=== PATIENT | female | born 1980 | race Caucasian/White ===

== ENCOUNTER 2017-04-20 11:41 | Day surgery (SDC) | payer BC ==
[2017-04-20 12:43] LABS: #Eosinphils 0.2 thou/uL (0.0-0.7); #Lymphocytes 3.5 thou/uL (1.20-3.40); #Monocytes 0.4 thou/uL (0.11-0.59); #Neutrophils 3.9 thou/uL (1.40-6.50); %Basophils 0.4 % (0.0-1.0); %Eosinophils 2.8 % (0.0-10.0); %Lymphocytes 43.1 % (21.0-51.0); %Monocytes 4.9 % (0.0-10.0); Red Blood Cell (RBC) Count 4.05 mill/uL (4.20-5.40)
[2017-04-20 13:06] LABS: ALT (SGPT) 19 U/L (8-55); AST (SGOT) 51 U/L (5-34); Alkaline Phosphatase 78 U/L (40-150); Anion Gap 16 mmol/L (10-20); BUN (Urea Nitrogen) 9 mg/dL (7.0-18.7); Bilirubin, Direct 0.1 mg/dL (0.1-0.3); Bilirubin, Total 0.3 mg/dL (0.2-1.2); Calc. Creatinine Clearance 0 mL/min (70-130); Calcium 8.9 mg/dL (7.8-10.44); Carbon Dioxide 23 mmol/L (22-29); Chloride 104 mmol/L (98-107); Estimated GFR-MDRD Greater than 90; Protein, Total 7.1 g/dL (6.0-8.3)
[2017-04-20] MEDS ORDERED: Bupivacaine/Epinephrine 0.25% 30 ML VIAL ONE (13:23)
[2017-04-20] MEDS ORDERED: cefOXitin 2 GM, Syringe 1 ML in Sterile Water 10 ML SLOW IVP SCH (13:30)
[2017-04-20] MEDS ORDERED: Fentanyl 250 MCG/5 ML VIAL ONE (13:37)
[2017-04-20] MEDS ORDERED: Iothalamate Meglumine 60% 50 ML VIAL FS ONE (13:50)
[2017-04-20] MEDS ORDERED: Succinylcholine Chloride 20 MG/ML 10 ml SYRINGE FS ONE (13:58)
[2017-04-20] MEDS ORDERED: Lidocaine 2% MPF 10 ML AMP (For Epidural Use) ONE (13:58)
[2017-04-20] MEDS ORDERED: ePHEDrine/0.9% NaCl/PF SYRINGE 50 mg/10 ml ONE (13:58)
[2017-04-20] MEDS ORDERED: Ondansetron HCl/PF 4 MG/2 ML Vial ONE (13:58)
[2017-04-20] MEDS ORDERED: Glycopyrrolate 0.2 MG/ML 5 ML SYRINGE ONE (13:58)
[2017-04-20] MEDS ORDERED: Propofol 200 MG/20 ML VIAL ONE ×2 (13:58)
[2017-04-20] MEDS ORDERED: Ketorolac Tromethamine 30 MG/ML VIAL ONE (13:58)
[2017-04-20] MEDS ORDERED: PHENYLEPHRINE-NS 100 MCG/ML 10 ML SYRINGE ONE (13:58)
[2017-04-20] MEDS ORDERED: Dexamethasone 20 MG/5 ML VIAL ONE (13:58)
[2017-04-20] MEDS ORDERED: Diprivan 20 ML ONE (14:58)
[2017-04-20] MEDS ORDERED: Promethazine HCl 25 MG/ML VIAL ONE ×2 (15:58→18:22)
[2017-04-20] MEDS ORDERED: Fentanyl 100 MCG/2 ML VIAL ONE ×2 (16:00→16:21)
[2017-04-20] MEDS ORDERED: HYDROcodone/Acetaminophen 5/325 mg Tablet ONE (18:28)
--- NOTE | 2017-04-23 08:52 | OP ---
DATE OF PROCEDURE: 04/20/2017 PREOPERATIVE DIAGNOSIS: Chronic cholecystitis. POSTOPERATIVE DIAGNOSIS: Chronic cholecystitis. PROCEDURE PERFORMED: Laparoscopic cholecystectomy with intraoperative cholangiogram. SURGEON: John Barnett M.D. ANESTHESIA: General. ESTIMATED BLOOD LOSS: Minimal. COMPLICATIONS: None. SPECIMENS: Gallbladder. TECHNIQUE: The patient was taken to the operating room and placed supine on the table. After genera l anesthetic was obtained, the abdomen was prepped and draped in a sterile fashion. A straight incis ion was made above the umbilicus. Cautery was used to dissect down to and score the fascia. Abdomin al cavity entered bluntly using a Simran clamp. Holding stitch of PDS was placed on each side of the fascia. Gonzalez trocar was placed. High-flow pneumoperitoneum was obtained. An upper midline 5-mm p ort and 2 right upper quadrant 5-mm ports were placed under direct camera visualization. The gallbla dder was retracted from the gallbladder fossa. The peritoneum was opened anteriorly and posteriorly. The patient had a long gallbladder. Her body habitus made it very difficult to see the base of the gallbladder. An additional 5-mm port was placed in the left upper quadrant and the snake liver retr actor was brought in and used to hold the omentum and colon down to expose the fundus of the gallblad joss. At the base of the gallbladder, the cystic duct and cystic artery were dissected away from surr ounding structures. The critical view triangle was able to be seen. A clip was placed high on the c ystic duct. A small ductotomy was made just proximal to that. A cholangiocatheter was brought in th rough a separate stab incision and placed into the cystic duct and a cholangiogram was performed, whi ch confirms the anatomy. Cholangiocatheter was removed and a PDS endoloop was used to ligate the cys tic duct proximally. Cystic artery was taken using two clips proximally, one clip distally, and cut using laparoscopic scissors. Cautery was used to dissect the gallbladder out of the gallbladder ellen a. The gallbladder was placed in an Endo catch bag and brought out through the Gonzalez. All port sit es were infiltrated using local anesthetic. There was bleeding in the liver bed, it was controlled w ith cautery. There was no bleeding at the end of the procedure. All port sites were infiltrated usi ng local anesthetic. All ports were removed under camera visualization. Pneumoperitoneum was let do wn. PDS was used to close the fascial defect below the umbilicus. All incisions were irrigated and closed using 4-0 Monocryl and Dermabond. The patient went to recovery in stable condition. All inst rument counts, needle counts, and lap counts were correct.
--- NOTE | 2017-04-23 18:20 | RAD ---
INTRAOPERATIVE CHOLANGIOGRAM: Date: 04-20-17 History: Laparoscopic cholecystectomy. FINDINGS: A single image is provided from an intraoperative cholangiogram performed on 04-20-17. The study is provided for interpretation on 04-23-17. The single provided image demonstrates contrast media within the common bile duct and intrahepatic b iliary tree. Intrahepatic ducts are poorly assessed secondary to motion. The distal CBD is not evalu ated on this examination as it is not opacified. There is contrast media within the duodenum and the cholecystectomy bed, likely via the cystic duct remnant, spilling into the gallbladder fossa. No ob vious filling defect is seen. Correlation with real-time imaging is required. IMPRESSION: Intraoperative cholangiogram as above. POS: CAROL
== END 2017-04-20 17:20 | disposition home or self-care (01) ==
LOC: SDC 11:41
PROVIDERS: ATTEND Surgery
PROC: 0FT44ZZ Resection of Gallbladder, Percutaneous Endoscopic Approach (ICD-10-PCS; principal; 2017-04-20)
PROC: BF03YZZ Plain Radiography of Gallbladder and Bile Ducts using Other Contrast (ICD-10-PCS; principal; 2017-04-20)
DX: K81.0 Acute cholecystitis (principal); K81.1 Chronic cholecystitis; I10 Essential (primary) hypertension; E66.9 Obesity, unspecified; K21.9 Gastro-esophageal reflux disease without esophagitis; Z68.44 Body mass index [BMI] 60.0-69.9, adult; Z79.899 Other long term (current) drug therapy; Z98.890 Other specified postprocedural states; Z87.891 Personal history of nicotine dependence
CPT/HCPCS: 36415; 47532; 80048; 80076; 85025; 88304; 96374; A4216; J0131; J0694; J1100; J1170; J1885; J2001; J2405; J2550; J2704; J3010; Q9961

== ENCOUNTER 2020-02-12 18:57 | Emergency (ER) | payer OTHER ==
[2020-02-12] MEDS ORDERED: Ketorolac Tromethamine 30 MG/ML VIAL ONE (19:59)
--- NOTE | 2020-02-12 20:09 | CT ---
Exam: CT cervical spine without contrast HISTORY: Trauma. Pain. COMPARISON: None FINDINGS: No craniocervical dissociation. Appropriate alignment of the lateral masses of C1 and C2. Intact odon toid process Appropriate alignment of the facets. Soft tissue neck structures: No mass, hematoma or prevertebral soft tissue swelling. There are scatte red enlarged soft tissue neck lymph nodes. Property Caretaker enlarged lymph node is noted on the right neck, compatible with a enlarged right level 2-3 lymph node measuring 1.1 x 0 8 cm. Upper mediastinum and lung apices: Unremarkable Central spinal canal: Neural foramina and central spinal canal are patent. Evaluation is limited by t echnique Vertebral bodies: Cervical spine vertebral body height is maintained. No fracture. IMPRESSION: 1. No fracture. 2. Soft tissue neck lymphadenopathy. Correlate clinically for an infectious, inflammatory or ligament ous/metastatic process.
== END 2020-02-12 20:55 | disposition home or self-care (01) ==
LOC: ERS 18:57
DX: S16.1XXA Strain of muscle, fascia and tendon at neck level, initial encounter (principal); E11.9 Type 2 diabetes mellitus without complications; E78.5 Hyperlipidemia, unspecified; K21.9 Gastro-esophageal reflux disease without esophagitis; I10 Essential (primary) hypertension; E78.00 Pure hypercholesterolemia, unspecified; Z87.891 Personal history of nicotine dependence; Z79.84 Long term (current) use of oral hypoglycemic drugs; Z79.899 Other long term (current) drug therapy; V43.52XA Car driver injured in collision with other type car in traffic accident, initial encounter; Y92.411 Interstate highway as the place of occurrence of the external cause
CPT/HCPCS: 72125; 96372; J1885

== ENCOUNTER 2020-09-27 14:54 | Emergency (ER) | payer OTHER ==
[2020-09-27 15:36] LABS: #Basophils 0.1 thou/uL (0.0-0.2); #Eosinphils 0.5 thou/uL (0.0-0.7); #Lymphocytes 5.1 thou/uL (1.20-3.40); #Monocytes 0.6 thou/uL (0.11-0.59); #Neutrophils 4.1 thou/uL (1.40-6.50); %Basophils 0.9 % (0.0-1.0); %Monocytes 5.8 % (0.0-10.0); %Neutrophils 39.3 % (42.0-75.0); Hemoglobin 12.7 g/dL (12.0-16.0); Mean Corpuscular Hemoglobin 29.1 pg (27.0-31.0); Mean Corpuscular Volume 88.2 fL (78.0-98.0); Mean Platelet Volume 7.2 fL (7.4-10.4); Platelet Count 314 thou/uL (130-400); RBC Distribution Width 12.9 % (11.5-14.5); Red Blood Cell (RBC) Count 4.36 mill/uL (4.20-5.40); White Blood Cell (WBC) Count 10.3 thou/uL (4.8-10.8)
[2020-09-27 15:47] LABS: BHCG - Serum Negative (NEGATIVE); Pregs Control Background? CLEAR/WHITE (CLR/WHITE); Pregs Control Bar Appear? YES (CONTROL BAR)
[2020-09-27 15:57] LABS: ALT (SGPT) 37 U/L (8-55); AST (SGOT) 52 U/L (5-34); Alkaline Phosphatase 78 U/L (40-110); Anion Gap 17 mmol/L (10-20); BUN (Urea Nitrogen) 19 mg/dL (7.0-18.7); Bilirubin, Total Less than 0.2 mg/dL (0.2-1.2); Calc. Creatinine Clearance 0 mL/min (70-130); Calcium 9.5 mg/dL (7.8-10.44); Carbon Dioxide 25 mmol/L (22-29); Chloride 101 mmol/L (98-107); Globulin 3.8 g/dL (2.4-3.5); Glucose 189 mg/dL (70-105); Lipase 48 U/L (8-78); Protein, Total 7.8 g/dL (6.0-8.3); Sodium 139 mmol/L (136-145)
[2020-09-27 19:02] LABS: Bilirubin Negative (Negative); Blood, Urine Negative (Negative); Clarity Clear (Clear); Glucose, Urine (Dipstick) Normal (Negative); Ketone, Urine Negative (Negative); Leukocyte Negative Leu/uL (Negative); Nitrite Negative (Negative); Protein, Urine (Dipstick) 10 mg/dL (Neg-Trace); Specific Gravity, Urine 1.032 (1.002-1.036); Urobilinogen Normal mg/dL (Less than 2)
== END 2020-09-27 19:22 | disposition home or self-care (01) ==
LOC: ERS 14:54
DX: R10.11 Right upper quadrant pain (principal); E11.9 Type 2 diabetes mellitus without complications; E78.00 Pure hypercholesterolemia, unspecified; E78.5 Hyperlipidemia, unspecified; K21.9 Gastro-esophageal reflux disease without esophagitis; I10 Essential (primary) hypertension; F17.210 Nicotine dependence, cigarettes, uncomplicated; Z79.84 Long term (current) use of oral hypoglycemic drugs; Z79.899 Other long term (current) drug therapy
CPT/HCPCS: 36415; 76705; 80053; 81003; 83690; 84703; 85025

== ENCOUNTER 2020-09-28 14:27 | Outpatient (CLI) | payer OTHER | END 2020-09-28 14:28 | disposition home or self-care (01) | LOC: RAD 14:27 | PROVIDERS: ATTEND Registered Nurse | DX: M79.641 Pain in right hand (principal); M25.511 Pain in right shoulder ==

== ENCOUNTER 2020-09-30 13:05 | Outpatient (CLI) | payer OTHER ==
[2020-10-01 14:23] LABS: SARS-CoV-2 PCR by NAA Not Detected (NotDetected)
== END 2020-09-30 13:06 | disposition home or self-care (01) ==
LOC: LABBT 13:05
PROVIDERS: ATTEND Internal Medicine Gastroenterology
DX: Z01.812 Encounter for preprocedural laboratory examination (principal); K76.0 Fatty (change of) liver, not elsewhere classified; K92.1 Melena; E66.01 Morbid (severe) obesity due to excess calories; R13.19 Other dysphagia; R10.11 Right upper quadrant pain; R79.89 Other specified abnormal findings of blood chemistry; Z20.822 Contact with and (suspected) exposure to COVID-19
CPT/HCPCS: 87635; U0003; U0005

== ENCOUNTER 2020-10-05 07:07 | Day surgery (SDC) | payer OTHER ==
[2020-10-01 14:38] VITALS: BMI 56.2
[2020-10-05] MEDS ORDERED: PROPOFOL 200 MG/20 ML VIAL ONE (09:44)
== END 2020-10-05 11:25 | disposition home or self-care (01) ==
LOC: SDC 07:07
PROVIDERS: ATTEND Internal Medicine Gastroenterology
PROC: 0DBL8ZZ Excision of Transverse Colon, Via Natural or Artificial Opening Endoscopic (ICD-10-PCS; principal; 2020-10-05)
PROC: 0DBN8ZZ Excision of Sigmoid Colon, Via Natural or Artificial Opening Endoscopic (ICD-10-PCS; principal; 2020-10-05)
PROC: 0DBK8ZZ Excision of Ascending Colon, Via Natural or Artificial Opening Endoscopic (ICD-10-PCS; principal; 2020-10-05)
PROC: 0DB98ZX Excision of Duodenum, Via Natural or Artificial Opening Endoscopic, Diagnostic (ICD-10-PCS; principal; 2020-10-05)
DX: K63.5 Polyp of colon (principal); K64.8 Other hemorrhoids; K21.9 Gastro-esophageal reflux disease without esophagitis; R13.19 Other dysphagia; D64.9 Anemia, unspecified; E11.9 Type 2 diabetes mellitus without complications; E78.00 Pure hypercholesterolemia, unspecified; I10 Essential (primary) hypertension; F17.210 Nicotine dependence, cigarettes, uncomplicated; K76.0 Fatty (change of) liver, not elsewhere classified; E66.01 Morbid (severe) obesity due to excess calories; Z68.43 Body mass index [BMI] 50.0-59.9, adult; Z79.84 Long term (current) use of oral hypoglycemic drugs; Z79.899 Other long term (current) drug therapy; Z88.5 Allergy status to narcotic agent
CPT/HCPCS: 88305; J2704

== ENCOUNTER 2020-10-11 09:24 | Outpatient (CLI) | payer OTHER | END 2020-10-11 09:25 | disposition home or self-care (01) | LOC: BICCT 09:24 | PROVIDERS: ATTEND Internal Medicine Gastroenterology | DX: Z11.59 Encounter for screening for other viral diseases (principal); R10.11 Right upper quadrant pain; R94.5 Abnormal results of liver function studies; K76.0 Fatty (change of) liver, not elsewhere classified; K92.1 Melena; E66.01 Morbid (severe) obesity due to excess calories; R13.19 Other dysphagia; N89.8 Other specified noninflammatory disorders of vagina | CPT/HCPCS: 74177; 82565 ==

== ENCOUNTER 2020-11-05 09:27 | Outpatient (CLI) | payer OTHER | END 2020-11-05 09:28 | disposition home or self-care (01) | LOC: TBSIIMAG 09:27 | PROVIDERS: ATTEND Registered Nurse | DX: M79.641 Pain in right hand (principal); M25.511 Pain in right shoulder; M19.011 Primary osteoarthritis, right shoulder; M75.101 Unspecified rotator cuff tear or rupture of right shoulder, not specified as traumatic; M67.813 Other specified disorders of tendon, right shoulder ==

== ENCOUNTER 2022-05-29 18:00 | Outpatient (CLI) | payer BC | END 2022-05-29 18:01 | disposition home or self-care (01) | LOC: SLEEPLAB 18:00 | PROVIDERS: ATTEND Registered Nurse | DX: G47.33 Obstructive sleep apnea (adult) (pediatric) (principal); R53.83 Other fatigue; E66.9 Obesity, unspecified; F32.A Depression, unspecified; E11.9 Type 2 diabetes mellitus without complications; R06.83 Snoring; G47.00 Insomnia, unspecified; I10 Essential (primary) hypertension; Z68.43 Body mass index [BMI] 50.0-59.9, adult | CPT/HCPCS: 95800 ==